=== PATIENT | male | born 1980 | race Caucasian/White ===

== ENCOUNTER 2016-07-24 18:45 | Emergency (ER) | payer OTHER | END 2016-07-25 18:50 | disposition left against medical advice (07) | LOC: CED 18:45 | DX: Z53.21 Procedure and treatment not carried out due to patient leaving prior to being seen by health care provider (principal) ==

== ENCOUNTER 2016-10-19 22:17 | Emergency (ER) | payer OTHER ==
[~2016-10-19] VITALS: Ht 175.3 cm; Wt 91.6 kg
== END 2016-10-19 23:30 | disposition home or self-care (01) ==
LOC: CED 22:17
DX: S60.562A Insect bite (nonvenomous) of left hand, initial encounter (principal); I10 Essential (primary) hypertension; F17.200 Nicotine dependence, unspecified, uncomplicated; W57.XXXA Bitten or stung by nonvenomous insect and other nonvenomous arthropods, initial encounter
CPT/HCPCS: 99282